=== PATIENT | male | born 1990 | race Caucasian/White ===

== ENCOUNTER 2021-12-19 20:07 | Emergency (ER) | payer OTHER ==
[~2021-12-19] VITALS: Ht 185.4 cm; Wt 117.9 kg
[2021-12-19 20:40] VITALS: BP 119/69
--- NOTE | 2021-12-19 23:28 | NUR ---
Dr. Polanco examining patient.
[2021-12-19] MEDS ORDERED: IBUP-2213 PO (23:35)
[2021-12-19] MEDS ORDERED: PENICILLIN G BENZATHINE L-A 1.2 MU/2 ML SYR IM ONE (23:35)
[2021-12-19] MEDS ORDERED: PRED20TA5 PO (23:35)
[2021-12-19] MEDS ORDERED: KETOROLAC 60 MG/2 ML VIAL IM ONE (23:35)
[2021-12-20 00:08] VITALS: BP 138/82
--- NOTE | 2021-12-20 00:08 | NUR ---
Patient discharged with v/s stable. Written and verbal after care instructions given and explained. Patient alert, oriented and verbalized understanding of instructions. Ambulatory with steady gait. All questions addressed prior to discharge. ID band removed. Patient advised to follow up with PMD. Rx of Ibuprofen and Prednisone given. Patient educated on indication of medication including possible reaction and side effects. Opportunity to ask questions provided and answered.
== END 2021-12-20 00:08 | disposition home or self-care (01) ==
LOC: MED 20:07
DX: J02.0 Streptococcal pharyngitis (principal); R51.9 Headache, unspecified; R50.9 Fever, unspecified; Z79.899 Other long term (current) drug therapy
CPT/HCPCS: 96372; 99284; J0561; J1885